=== PATIENT | male | born 1950 | race Caucasian/White ===

== ENCOUNTER → 2017-04-07 | Outpatient (CLI) | payer OTHER ==
[~2017-04-07] MED LIST: CIALIS PO; HYDR25TA6 PO
[2017-04-07 09:20] LABS: BASOPHILS # (AUTO) 0.02 x10^3/uL (0-0.1); BASOPHILS % (AUTO) 0 % (0-1); EOSINOPHILS # (AUTO) 0.07 x10^3/uL (0-0.4); EOSINOPHILS % (AUTO) 1 % (1-7); LYMPHOCYTES # (AUTO) 1.41 x10^3/uL (1-3.4); LYMPHOCYTES % (AUTO) 27 % (22-44); MD NO; MEAN CORPUSCULAR HEMOGLOBIN 32.1 pg (27.5-34.5); MEAN CORPUSCULAR HGB CONC 34.8 g/dL (33.2-36.2); MEAN CORPUSCULAR VOLUME 92.3 fL (81-97); MEAN PLATELET VOLUME 7.6 fL (7.4-10.4); MONOCYTES # (AUTO) 0.43 x10^3/uL (0.2-0.8); MONOCYTES % (AUTO) 8 % (2-9); NEUTROPHILS % (AUTO) 64 % (42-75); PLATELET COUNT 236 x10^3/uL (130-400); RED CELL DISTRIBUTION WIDTH 11.9 % (9.4-14.8)
[2017-04-07 09:22] LABS: CULTURE INDICATED? NO; MICROSCOPIC NOT IND
[2017-04-07 09:29] LABS: INTERNATIONAL NORMALIZED RATIO 1.06 (0.93-1.1); PROTHROMBIN TIME 10.9 Seconds (9.6-11.5)
[2017-04-07 09:32] LABS: ALANINE AMINOTRANSFERASE 31 U/L (12-78); ALBUMIN 4.2 g/dL (3.4-5.0); ANION GAP 6 mmol/L (5-15); CALCIUM 9.2 mg/dL (8.5-10.1); CHLORIDE 106 mmol/L (98-107); CREATININE 1.06 mg/dL (0.7-1.3)
[2017-04-07 09:35] LABS: ALKALINE PHOSPHATASE 60 U/L (45-117); BILIRUBIN,TOTAL 0.6 mg/dL (0.2-1.0); TOTAL PROTEIN 7.3 g/dL (6.4-8.2)
== END | disposition home or self-care (01) ==
LOC: STAR 08:14
PROVIDERS: ATTEND Neurological Surgery
DX: G89.29 Other chronic pain (principal); M50.30 Other cervical disc degeneration, unspecified cervical region
CPT/HCPCS: 36415; 71046; 72050; 80053; 81003; 85025; 85610; 85730; 93005

== ENCOUNTER 2017-04-18 07:30 | Inpatient (IN) | payer OTHER ==
[~2017-04-18] VITALS: Ht 175.3 cm; Wt 80.4 kg
[2017-04-22] MEDS ORDERED: VANCOMYCIN 1,000 MG ONE (06:45)
[2017-04-22] MEDS ORDERED: BACITRACIN 50,000 UNIT ONE (06:45)
[2017-04-22] MEDS ORDERED: THROMBIN 5,000 UNIT VIAL TP ONE (06:45)
[2017-04-22] MEDS ORDERED: EPINEPHRINE 1 MG/ML, 1ML ONE (06:45)
[2017-04-22] MEDS ORDERED: BUPIVACAINE/PF 0.5% ONE (06:45)
[2017-04-22] MEDS ORDERED: LACTATED RINGERS 1,000 ML IV SCH (07:20)
[2017-04-22 07:24] VITALS: BP 172/95
[2017-04-22] MEDS ORDERED: MIDAZOLAM 1 MG/ML, 2ML ONE (08:32)
[2017-04-22] MEDS ORDERED: FENTANYL PF 250 MCG/5ML ONE (08:33)
[2017-04-22] MEDS ORDERED: ACETAMINOPHEN 500 MG TABLET ONE ×2 (08:51)
[2017-04-22] MEDS ORDERED: GABAPENTIN 300 MG CAPSULE ONE ×2 (08:51→08:52)
[2017-04-22] MEDS ORDERED: OXYcodone IR 5MG TABLET ONE (08:52)
[2017-04-22] MEDS ORDERED: NEOSTIGMINE 1 MG/ML, 10ML ONE (09:03)
[2017-04-22] MEDS ORDERED: GLYCOPYRROLATE 0.2MG/1ML, 5ML ONE (09:03)
[2017-04-22] MEDS ORDERED: PROPOFOL 10 MG/ML, 20ML ONE ×4 (09:31)
[2017-04-22] MEDS ORDERED: SUCCINYLCHOLINE 20 MG/ML, 10ML ONE (09:31)
[2017-04-22] MEDS ORDERED: ONDANSETRON 2MG/ML, 2ML ONE (09:31)
[2017-04-22] MEDS ORDERED: CEFAZOLIN 1,000 MG ONE ×2 (09:31)
[2017-04-22] MEDS ORDERED: BUPIVACAINE/PF-EPI 0.5% 1:200K IM ONE (09:52)
[2017-04-22] MEDS ORDERED: MEPERIDINE/PF 25MG/0.5ML IVPush PRN (10:00)
[2017-04-22] MEDS ORDERED: LABETALOL 5MG/ML, 20ML IV PRN (10:00)
[2017-04-22] MEDS ORDERED: METOPROLOL 1 MG/ML, 5ML IV PRN (10:00)
[2017-04-22] MEDS ORDERED: PROMETHAZINE 25 MG/ML, 1ML IV PRN (10:00)
[2017-04-22] MEDS ORDERED: HYDROmorphone 1 MG/ML, 1ML IV PRN (10:00)
[2017-04-22] MEDS ORDERED: hydrALAzine 20 MG/ML, 1ML IV PRN (10:00)
[2017-04-22] MEDS ORDERED: FENTANYL PF 100 MCG/2ML IV PRN (10:00)
[2017-04-22] MEDS ORDERED: OXYcodone 5 MG/5 ML ORAL.SOL UDC PO PRN (10:00)
[2017-04-22] MEDS ORDERED: ONDANSETRON 2MG/ML, 2ML IVPush PRN (10:00)
[2017-04-22] MEDS ORDERED: EPHEDRINE 50 MG/ML, 1ML IVPush PRN (10:00)
[2017-04-22] MEDS ORDERED: ALBUTEROL SULFATE 2.5 MG/3 ML NPPB PRN (10:00)
== END 2017-04-22 13:40 | disposition home or self-care (01) | DRG 517 ==
LOC: ORIP 04-22 06:28 → EDSTATUS 04-22 17:00
PROVIDERS: ADMIT Neurological Surgery; ATTEND Neurological Surgery
PROC: 01N80ZZ Release Thoracic Nerve, Open Approach (ICD-10-PCS; 2017-04-22)
PROC: 01N10ZZ Release Cervical Nerve, Open Approach (ICD-10-PCS; principal; 2017-04-22 09:30)
DX: M50.123 Cervical disc disorder at C6-C7 level with radiculopathy (principal); M48.03 Spinal stenosis, cervicothoracic region; I10 Essential (primary) hypertension; E78.00 Pure hypercholesterolemia, unspecified; Z87.01 Personal history of pneumonia (recurrent); Z85.46 Personal history of malignant neoplasm of prostate; Z88.8 Allergy status to other drugs, medicaments and biological substances; Z72.89 Other problems related to lifestyle; Z82.61 Family history of arthritis; Z81.8 Family history of other mental and behavioral disorders; Z82.49 Family history of ischemic heart disease and other diseases of the circulatory system; Z80.9 Family history of malignant neoplasm, unspecified
CPT/HCPCS: 72040; 95938; 95941; C1713; J0171; J0690; J2250; J2405; J2704; J2710; J3010; J3370; J3490; J0330; J7120

== ENCOUNTER → 2017-06-01 | Outpatient (CLI) | payer OTHER, MEDICARE | END | disposition home or self-care (01) | LOC: CFH 14:36 | PROVIDERS: ATTEND Neurological Surgery | DX: S99.822A Other specified injuries of left foot, initial encounter (principal); X58.XXXA Exposure to other specified factors, initial encounter; Y93.89 Activity, other specified; Y92.89 Other specified places as the place of occurrence of the external cause; Y99.8 Other external cause status ==

== ENCOUNTER 2017-07-30 17:15 | Emergency (ER) | payer MEDICARE, OTHER ==
[~2017-07-30] VITALS: Ht 175.3 cm; Wt 79.5 kg
[2017-07-30 17:18] VITALS: BP 121/73
[2017-07-30] MEDS ORDERED: LIDOCAINE-MPF 1%, 5ML INFIL ONE (17:30)
[2017-07-30] MEDS ORDERED: LIDOCAINE-MPF 1%, 2ML ONE ×2 (17:55→17:56)
[2017-07-30] MEDS ORDERED: BUPIVACAINE 0.25% ONE (17:55)
[2017-07-30] MEDS ORDERED: BUPIVACAINE/PF-EPI 0.25% 1:200K SQ ONE (18:00)
[2017-07-30] MEDS ORDERED: DIPH,PERTUSS(ACELL),TET VAC/PF 0.5 ML IM-VACC ONE ×2 (18:30→18:31)
== END 2017-07-30 19:47 | disposition home or self-care (01) ==
LOC: ED 19:41
DX: S01.81XA Laceration without foreign body of other part of head, initial encounter (principal); Z85.46 Personal history of malignant neoplasm of prostate; W19.XXXA Unspecified fall, initial encounter; Y93.89 Activity, other specified; Y92.099 Unspecified place in other non-institutional residence as the place of occurrence of the external cause; Y99.8 Other external cause status
CPT/HCPCS: 12053; 90471; 90715; 99284

== ENCOUNTER → 2017-09-07 | Outpatient (CLI) | payer MEDICARE, OTHER | END | disposition home or self-care (01) | LOC: ROC 08:51 | PROVIDERS: ATTEND Radiology Radiation Oncology | DX: C61 Malignant neoplasm of prostate (principal) | CPT/HCPCS: G0463 ==

== ENCOUNTER → 2018-09-13 | Outpatient (CLI) | payer MEDICARE, OTHER | END | disposition home or self-care (01) | LOC: ROC 07:39 | PROVIDERS: ATTEND Radiology Radiation Oncology | DX: C61 Malignant neoplasm of prostate (principal) | CPT/HCPCS: G0463 ==

== ENCOUNTER → 2019-09-12 | Outpatient (CLI) | payer MEDICARE, OTHER | END | disposition home or self-care (01) | LOC: ROC 08:25 | PROVIDERS: ATTEND Radiology Radiation Oncology | DX: C61 Malignant neoplasm of prostate (principal); Z98.890 Other specified postprocedural states | CPT/HCPCS: G0463 ==

== ENCOUNTER 2020-09-07 07:11 | Outpatient (CLI) | payer MEDICARE, OTHER | END 2020-09-07 23:59 | disposition home or self-care (01) | LOC: ROC 07:11 | PROVIDERS: ATTEND Radiology Radiation Oncology | DX: Z08 Encounter for follow-up examination after completed treatment for malignant neoplasm (principal); Z85.46 Personal history of malignant neoplasm of prostate | CPT/HCPCS: G0463 ==